=== PATIENT | female | born 1965 | race African-American/Black ===

== ENCOUNTER 2018-11-06 23:22 | Emergency (ER) | payer BC ==
[~2018-11-06] VITALS: Ht 185.4 cm; Wt 98.0 kg
[2018-11-07 00:26] LABS: IMMATURE GRANULOCYTES 0.5 % (0.0-5.0); MEAN CELL VOLUME 79.4 fL CALC (80.0-100.0); MEAN CORPUSCULAR HGB 25.2 pG CALC (26.0-32.0); MEAN CORPUSCULAR HGB CONC 31.7 g/L CALC (32.0-36.0); NEUT# 5.23 thou/uL (2.00-7.15); RED BLOOD COUNT 5.24 mill/uL (4.20-5.60); RED CELL DISTRI WIDTH 13.2 % (11.5-15.5)
[2018-11-07 00:31] LABS: URINE BILIRUBIN - DIPSTICK NEGATIVE (NEGATIVE); URINE BLOOD DIPSTICK SMALL (NEGATIVE); URINE COLOR YELLOW; URINE GLUCOSE - DIPSTICK >=1000 mg/dL (NEGATIVE); URINE KETONE 15 mg/dL (NEGATIVE); URINE LEUK ESTERASE NEGATIVE (Negative); URINE NITRITE - DIPSTICK NEGATIVE (Negative); URINE PH 6.5 (4.5-8.0); URINE PROTEIN - DIPSTICK >=300 mg/dL (NEG-TRACE); URINE UROBILINOGEN - DIPSTICK 0.2 E.U./dL (0.2)
[2018-11-07 00:33] LABS: ALKALINE PHOSPHATASE 88 u/l (38-126); ANION GAP 19 (6-22 (CALC)); BUN 12 mg/dL (7-17); BUN/CREATININE RATIO 18 (12-20 (CALC)); CARBON DIOXIDE 24 mmol/l (22-30); CHLORIDE 101 mmol/l (95-108); CREATININE 0.7 mg/dL (0.5-1.0); GFR > 60 ML/MIN (>=60 (CALC)); GFR FOR AFR.AMER. > 60 ML/MIN (>=60 (CALC)); POTASSIUM 4.3 mmol/l (3.5-5.1); SGOT/AST 38 u/l (14-36); SODIUM 139 mmol/l (137-146)
[2018-11-07 00:45] LABS: ALBUMIN 4.7 g/dL (3.2-5.0); BILIRUBIN, TOTAL 0.7 mg/dL (0.0-1.4)
[2018-11-07 00:46] LABS: TOTAL PROTEIN 8.6 g/dL (6.3-8.2)
[2018-11-07 01:31] LABS: HEMOGLOBIN 13.2 g/dl (12.0-16.0)
[2018-11-07 01:32] LABS: HEMATOCRIT 41.6 % (37.0-47.0)
[2018-11-07 01:33] LABS: URINE CLARITY HAZY
[2018-11-07 01:36] LABS: URINE BACTERIA RARE hpf; URINE SQUAMOUS EPITHELIAL CELL RARE EPI/hpf (0-FEW)
[2018-11-07] MEDS ORDERED: Levaquin PO (02:34)
[2018-11-07] MEDS ORDERED: AUGMENTIN875TAB PO (02:34)
[2018-11-07 04:12] VITALS: BP 133/63
--- NOTE | 2018-11-08 14:24 | NUR ---
Attempted to contact patient at primary number to follow up on her visit from 11/07/48. No answer and mailbox not set up so was unable [email or web address] leave message. Called secondary contact and patient was not available. Asked the mother to have patient call us back. Said she would give her the message.
== END 2018-11-07 04:01 | disposition left against medical advice (07) | DRG 872 ==
LOC: ED 23:22
PROVIDERS: Emergency Medicine
DX: A41.9 Sepsis, unspecified organism (principal); E11.9 Type 2 diabetes mellitus without complications; Z91.19 Patient's noncompliance with other medical treatment and regimen

== ENCOUNTER 2018-11-09 17:04 | Emergency (ER) | payer BC ==
[~2018-11-09] VITALS: Ht 185.4 cm; Wt 96.0 kg
[~2018-11-09 17:04] MED LIST: AUGMENTIN875TAB PO; Levaquin PO
[2018-11-09 18:10] LABS: HEMATOCRIT 36.4 % (37.0-47.0); HEMOGLOBIN 11.9 g/dl (12.0-16.0); IMMATURE GRANULOCYTES 0.4 % (0.0-5.0); MEAN CELL VOLUME 77.8 fL CALC (80.0-100.0); MEAN CORPUSCULAR HGB 25.4 pG CALC (26.0-32.0); MEAN CORPUSCULAR HGB CONC 32.7 g/L CALC (32.0-36.0); NEUT# 3.22 thou/uL (2.00-7.15); RED BLOOD COUNT 4.68 mill/uL (4.20-5.60); RED CELL DISTRI WIDTH 13.3 % (11.5-15.5)
[2018-11-09 18:24] LABS: ALBUMIN 4.2 g/dL (3.2-5.0); ALKALINE PHOSPHATASE 108 u/l (38-126); ANION GAP 16 (6-22 (CALC)); BILIRUBIN, TOTAL 0.6 mg/dL (0.0-1.4); BUN 9 mg/dL (7-17); BUN/CREATININE RATIO 21 (12-20 (CALC)); CARBON DIOXIDE 21 mmol/l (22-30); CHLORIDE 104 mmol/l (95-108); CREATININE 0.4 mg/dL (0.5-1.0); GFR > 60 ML/MIN (>=60 (CALC)); GFR FOR AFR.AMER. > 60 ML/MIN (>=60 (CALC)); POTASSIUM 3.7 mmol/l (3.5-5.1); SGOT/AST 71 u/l (14-36); SODIUM 137 mmol/l (137-146); TOTAL PROTEIN 7.9 g/dL (6.3-8.2)
[2018-11-09 19:55] VITALS: BP 161/77
== END 2018-11-09 19:58 | disposition home or self-care (01) | DRG 872 ==
LOC: ED 17:04
DX: R78.81 Bacteremia (principal); N39.0 Urinary tract infection, site not specified